=== PATIENT | male | born 1935 | race Caucasian/White ===

== ENCOUNTER 2018-02-03 05:44 | Emergency (ER) | payer OTHER ==
[~2018-02-03] VITALS: Ht 175.3 cm; Wt 89.0 kg
--- NOTE | 2018-02-03 05:56 | PHYS DOC ---
Past History Past Medical History: Asthma, Diabetes Past Surgical History: Appendectomy, Tonsillectomy Smoking: Non-smoker Alcohol Use: None Drug Use: None Adult General Chief Complaint Chief Complaint: DYSPNEA/RESPIRATOY DISTRESS HPI HPI 82-year-old male presents via EMS with report of dyspnea upon waking this morning. Patient does report history of asthma. Reports he is currently out of his inhalers. Denies any fever or chills. Denies leg swelling or tenderness. Denies known trauma. Denies chest pain. Review of Systems Review of Systems Constitutional: Denies fever or chills [] Eyes: Denies change in visual acuity, redness, or eye pain [] HENT: Denies nasal congestion or sore throat [] Respiratory: Reports shortness of breath and wheezing] Cardiovascular: Denies chest pain or palpitations GI: Denies abdominal pain, nausea, vomiting, bloody stools or diarrhea [] : Denies dysuria or hematuria [] Musculoskeletal: Denies back pain or joint pain [] Integument: Denies rash or skin lesions [] Neurologic: Denies headache, focal weakness or sensory changes [] Complete systems were reviewed and found to be within normal limits, except as documented in this note. Current Medications Current Medications Current Medications Medications (Trade) Dose Ordered Sig/Autumn Start Time Stop Time Status Last Admin Dose Admin Albuterol/ Ipratropium (Duoneb) 3 ml 1X ONCE 02/03/18 06:00 02/03/18 06:01 UNV Allergies Allergies Allergies Coded Allergies Type Severity Reaction Last Updated Verified Penicillins Allergy Unknown 02/03/18 Yes aspirin Allergy Unknown 02/03/18 Yes Physical Exam Physical Exam Constitutional: Well developed, well nourished, no acute distress, non-toxic appearance. [] HENT: Normocephalic, atraumatic,, oropharynx moist, nose normal. [] Eyes: EOMI, conjunctiva normal, no discharge. [] Neck: Normal range of motion, no tenderness, supple, no stridor. [] Cardiovascular:Heart rate regular rhythm, no murmur [] Lungs & Thorax: Diminished breath sounds at bases, expiratory wheeze noted Abdomen: Distended, soft, no tenderness, umbilical hernia noted (reducible)] Skin: Warm, dry, no erythema, no rash. [] Back: No tenderness, no CVA tenderness. [] Extremities: No tenderness, no cyanosis, no clubbing, ROM intact, 1-2+ BLE edema Neurologic: Alert and oriented X 3, normal motor function, normal sensory function, no focal deficits noted. [] Psychologic: Affect normal, judgement normal, mood normal. [] EKG EKG [] Radiology/Procedures Radiology/Procedures [][address] [id number] IMAGING REPORT Signed PATIENT: DEANNE GOMEZ ACCOUNT: [id number] : 1935 LOCATION: ER AGE: 82 SEX: M EXAM STATUS: REG ER ORD. PHYSICIAN: LISSA PIMENTEL DO REASON: dyspnea PROCEDURE: CHEST PA & LATERAL PA and lateral chest. HISTORY: Short of breath, history of asthma and diabetes, dyspnea PA and lateral views were taken of the chest. There is a granuloma in the right lung apex. Heart is normal in size. There is no effusion. IMPRESSION: 1. No acute infiltrates. Electronically signed by: Earl Barlow MD (02/03/2018 6:11 AM) [facility] DICTATED AND SIGNED BY: EARL BARLOW MD DATE: 02/03/18609 CC: PCP,UNKNOWN; LISSA PIMENTEL DO ~ Course & Med Decision Making Course & Med Decision Making Pertinent Labs and Imaging studies reviewed. (See chart for details) Patient with past medical history of asthma presents with report of shortness of breath upon waking this morning. EMS diverted to [facility] due to the [place] being closed to ambulances. Patient does appear to have some wheezing upon physical exam. Respiratory nebs ordered. Labs ordered. EKG pending. Chest x-ray pending. Sign out given to Dr. Richardson for further evaluation and final disposition. Dragon Disclaimer Dragon Disclaimer This electronic medical record was generated, in whole or in part, using a voice recognition dictation system. Departure Departure: Impression: Primary Impression: Dyspnea Additional Impressions: Medication refill Asthma exacerbation Disposition: HOME, SELF-CARE ([facility] at [id number]) Condition: IMPROVED Patient Instructions: Asthma Attacks, Prevention, Medication Refill, Emergency Department, Shortness of Breath Additional Instructions: Continue home medication Follow-up with your primary care physician at [facility] in 2-3 days Return to ER if not getting better Scripts Albuterol Sulfate (PROAIR HFA INHALER) 8.5 Gm Hfa.aer.ad 2 PUFF INH PRN Q6HRS PRN for SHORTNESS OF BREATH, #1 INHALER 0 Refills Prov: CHRISTINA RICHARDSON MD 02/03/18 Problem Qualifiers Primary Impression: Dyspnea Dyspnea type: unspecified Qualified Codes: R06.00 - Dyspnea, unspecified LISSA PIMENTEL DO Feb 03, 2018 05:55 CHRISTINA RICHARDSON MD Feb 03, 2018 07:10
[2018-02-03] MEDS ORDERED: DEXAMETHASONE SOD PHOS 10 MG/ML VIAL IV ONE (06:00)
[2018-02-03] MEDS ORDERED: IPRATRPIUM/ALBUTEROL 0.5/2.5MG 3 ML NEBU. NEB ONE (06:00)
--- NOTE | 2018-02-03 06:09 | EKG ---
[address] [id number] Test Date: 2018-02-03 Test Time: 06:05:02 Pat Name: DEANNE GOMEZ Department: Room: Gender: M [employer]: DOE : 1935 Requested By: LISSA PIMENTEL Order Number: [id number] Reading MD: Measurements Intervals [place] Rate: 83 P: 90 SC: 218 QRS: -53 QRSD: 98 T: 90 QT: 382 QTc: 455 Interpretive Statements SINUS RHYTHM PROLONGED SC INTERVAL ABNORMAL LEFT AXIS DEVIATION LOW LIMB LEAD VOLTAGE QRS(T) CONTOUR ABNORMALITY CONSISTENT WITH ANTEROSEPTAL INFARCT AGE UNDETERMINED T ABNORMALITY IN HIGH LATERAL LEADS ABNORMAL ECG RI6.01 No previous ECG available for comparison
--- NOTE | 2018-02-03 06:15 | RAD ---
PA and lateral chest. HISTORY: Short of breath, history of asthma and diabetes, dyspnea PA and lateral views were taken of the chest. There is a granuloma in the right lung apex. Heart is normal in size. There is no effusion. IMPRESSION: 1. No acute infiltrates. Electronically signed by: Earl Barlow MD (02/03/2018 6:11 AM) [facility]
[2018-02-03 06:26] LABS: BASO % 0 % (0-3); EOS # 0.6 x10^3/uL (0.0-0.7); EOS % 8 % (0-3); HEMATOCRIT 36.2 % (39.0-53.0); HEMOGLOBIN 11.9 g/dL (13.0-17.5); LYMPH # 1.9 x10^3/uL (1.0-4.8); LYMPH % 24 % (24-48); MEAN CORPUSCULAR HEMOGLOBIN 26 pg (25-35); MEAN CORPUSCULAR HGB CONC 33 g/dL (31-37); MEAN CORPUSCULAR VOLUME 80 fL (79-100); MONO # 0.7 x10^3/uL (0.0-1.1); MONO % 9 % (0-9); NEUT # 4.7 x10^3uL (1.8-7.7); NEUT % 59 % (31-73); PLATELET COUNT 266 x10^3/uL (140-400); RED BLOOD COUNT 4.53 x10^6/uL (4.30-5.70); RED CELL DISTRIBUTION WIDTH 15.5 % (11.5-14.5)
[2018-02-03 07:02] LABS: ALBUMIN/GLOBULIN RATIO 0.7 (1.0-1.7); CREATININE 1.3 mg/dL (0.7-1.3); GFR 53.1; MAGNESIUM 1.9 mg/dL (1.8-2.4); POTASSIUM 4.2 mmol/L (3.5-5.1); TOTAL BILIRUBIN 0.4 mg/dL (0.2-1.0); TOTAL PROTEIN 7.1 g/dL (6.4-8.2)
[2018-02-03] MEDS ORDERED: ALBU8.5H8 INH (07:09)
[2018-02-03 08:20] VITALS: BP 138/74
== END 2018-02-03 08:25 | disposition home or self-care (01) ==
LOC: ER 05:44
DX: J45.901 Unspecified asthma with (acute) exacerbation (principal); E11.9 Type 2 diabetes mellitus without complications; Z76.0 Encounter for issue of repeat prescription; Z88.0 Allergy status to penicillin; Z88.6 Allergy status to analgesic agent
CPT/HCPCS: 36415; 71046; 80053; 82553; 83735; 83880; 84484; 85025; 93005; 94640; 96374; 99285; J1100; J7620